=== PATIENT | female | born 1940 | race Caucasian/White ===

== ENCOUNTER 2019-07-09 07:44 | Inpatient (IN) | payer OTHER, BC ==
[2019-07-09] MEDS: TRANEXAMIC ACID 1GM/100ML(PMX) 100 ML AT CLOSURE X1 IVPB (06:00)
[2019-07-09] MEDS: CEFAZOLIN 2 GM/50 ML (PMX) 50 ML (FOR WT < 120 KG) IVPB (06:00)
[2019-07-09] MEDS: LACTATED RINGER'S 1,000 ML IV ×5 (09:00→22:00)
[2019-07-09] MEDS: DEXAMETHASONE 4 MG/ML 1 ML INJ IV (09:02)
[2019-07-09] MEDS: ACETAMINOPHEN 1000MG/100ML IV 100 ML IVPB (09:03)
[2019-07-09] MEDS ORDERED: METOCLOPRAMIDE 10 MG INJ (10:11)
[2019-07-09] MEDS ORDERED: morphine SULFATE/PF (10 MG/10 ML) INJ (10:11)
[2019-07-09] MEDS ORDERED: ONDANSETRON 4 MG INJ ×2 (10:11→16:13)
[2019-07-09] MEDS ORDERED: PROPOFOL 20 ML (10:11)
[2019-07-09] MEDS: TRANEXAMIC ACID 1GM/100ML(PMX) 100 ML AT INCISION X1 IVPB (10:31)
[2019-07-09] MEDS ORDERED: DEXAMETHASONE 4 MG/ML 5 ML INJ (10:48)
[2019-07-09] MEDS ORDERED: CEFAZOLIN 1 GM INJ (10:48)
[2019-07-09] MEDS ORDERED: ROCURONIUM 50 MG INJ (10:48)
[2019-07-09] MEDS: POLYMYXIN B 500000 UNIT INJ (11:33)
[2019-07-09] MEDS: BUPIVACAINE 0.25% (MPF) 30 ML INJ ×2 (11:33)
[2019-07-09] MEDS: BACITRACIN 50000 UNITS INJ IRR (11:33)
[2019-07-09] MEDS ORDERED: EPHEDrine 25 MG/5 ML SYG (11:35)
[2019-07-09] MEDS ORDERED: PHENYLephrine (100 MCG/ML) 10ML SYG (11:35)
[2019-07-09] MEDS ORDERED: ROPIVACAINE 0.2% 20 ML VIAL (12:49)
[2019-07-09] MEDS: TRANEXAMIC ACID 1GM/100ML(PMX) 100 ML (13:09)
[2019-07-09] MEDS ORDERED: KETOROLAC 15 MG INJ IV (13:30)
[2019-07-09] MEDS ORDERED: NALOXONE (0.4 MG/ML) INJ IV (13:30)
[2019-07-09] MEDS ORDERED: NACL 0.9% 3 ML SYG IV (13:30)
[2019-07-09] MEDS: ONDANSETRON 4 MG INJ IV ×2 (16:14→17:34)
[2019-07-09] MEDS ORDERED: GLUCAGON 1 MG INJ IM (17:00)
[2019-07-09] MEDS ORDERED: GLUCOSE GEL 15 GRAM TUBE BUCCAL (17:00)
[2019-07-09] MEDS ORDERED: GLUCOSE GEL 15 GRAM TUBE PO ×2 (17:00)
[2019-07-09] MEDS ORDERED: DEXTROSE 50% 50 ML SYRINGE IV ×2 (17:00)
[2019-07-09] MEDS: ACCU-CHEK XX ×2 (17:25→21:00)
[2019-07-09] MEDS: INSULIN ASPART [NOVOLOG] 3 ML PEN SC ×2 (19:41→22:23)
[2019-07-09] MEDS: CEFAZOLIN 2 GM/50 ML (PMX) 50 ML IVPB (19:41)
[2019-07-09] MEDS: GABAPENTIN 100 MG CAP PO (21:06)
[2019-07-10] MEDS: CEFAZOLIN 2 GM/50 ML (PMX) 50 ML IVPB ×3 (03:14→12:41)
[2019-07-10 05:19] LABS: ADD MAN DIFF? NO
[2019-07-10 05:23] LABS: WHITE BLOOD COUNT 8.8 10^3/ul (4.8-10.8)
[2019-07-10 05:23] LABS: HEMOGLOBIN 9.4 g/dl (12.0-16.0); LYMPHOCYTES # 0.8 10^3/ul (0.8-2.9); MEAN CORPUSCULAR HGB CONC 31.3 g/dl (32.0-37.0); MEAN CORPUSCULAR VOLUME 95.8 fl (82.0-101.0); MEAN PLATELET VOLUME 9.3 fl (7.4-10.4); MONOCYTE # 0.4 10^3/ul (0.3-0.9); MONOCYTES % 4.9 % (0.0-11.0); NEUTROPHIL # 7.5 10^3/ul (1.6-7.5); NEUTROPHILS % 85.8 % (39.0-77.0); PLATELET COUNT 229 10^3/UL (140-415); RED BLOOD COUNT 3.13 10^6/ul (4.20-5.40); RED CELL DISTRIBUTION WIDTH 14.1 % (11.5-14.5)
[2019-07-10 05:50] LABS: ANION GAP 8 (5-13); BLOOD UREA NITROGEN 14 mg/dl (7-20); CALCIUM 8.6 mg/dl (8.4-10.2); CARBON DIOXIDE 26 mmol/L (21-31); CHLORIDE 104 mmol/L (97-110); CREATININE 0.63 mg/dl (0.44-1.00); GLUCOSE 197 mg/dl (70-220); POTASSIUM 4.8 mmol/L (3.5-5.1); SODIUM 138 mmol/L (135-144)
[2019-07-10] MEDS: LACTATED RINGER'S 1,000 ML IV ×2 (06:00→14:19)
[2019-07-10] MEDS ORDERED: GLIMEPIRIDE 2 MG TAB PO (08:00)
[2019-07-10] MEDS: ACCU-CHEK XX ×4 (08:22→21:00)
[2019-07-10] MEDS: GABAPENTIN 100 MG CAP PO ×3 (08:24→20:34)
[2019-07-10] MEDS: DOCUSATE SODIUM 100 MG CAP PO ×2 (08:24→20:34)
[2019-07-10] MEDS: LISINOPRIL 20 MG TAB PO (08:24)
[2019-07-10] MEDS: metFORMIN 500 MG TAB PO (08:24)
[2019-07-10] MEDS: INSULIN ASPART [NOVOLOG] 3 ML PEN SC ×4 (08:26→20:36)
[2019-07-10] MEDS: [UNRECOGNIZED DRUG - REMARK] XX ×2 (09:00→17:00)
[2019-07-10] MEDS ORDERED: ASPIRIN (EC) 81 MG TAB PO (09:00)
[2019-07-10] MEDS: oxyCODONE 5 MG TAB PO ×3 (10:05→18:03)
[2019-07-10] MEDS: ASPIRIN 81 MG TAB PO (18:02)
[2019-07-11] MEDS: [UNRECOGNIZED DRUG - REMARK] XX ×2 (01:00→09:00)
[2019-07-11] MEDS: oxyCODONE 5 MG TAB PO ×3 (01:25→08:12)
[2019-07-11 04:59] LABS: ADD MAN DIFF? NO
[2019-07-11 05:07] LABS: BASOPHILS % 0.3 % (0.0-2.0); EOSINOPHILS # 0.1 10^3/ul (0.0-0.5); EOSINOPHILS % 0.5 % (0.0-7.0); HEMATOCRIT 30.8 % (37.0-47.0); HEMOGLOBIN 9.7 g/dl (12.0-16.0); LYMPHOCYTES # 1.4 10^3/ul (0.8-2.9); LYMPHOCYTES % 15.3 % (15.0-51.0); MEAN CORPUSCULAR HEMOGLOBIN 30.1 pg (29.0-33.0); MEAN CORPUSCULAR HGB CONC 31.5 g/dl (32.0-37.0); MEAN CORPUSCULAR VOLUME 95.7 fl (82.0-101.0); MEAN PLATELET VOLUME 9.2 fl (7.4-10.4); MONOCYTE # 0.6 10^3/ul (0.3-0.9); MONOCYTES % 6.5 % (0.0-11.0); NEUTROPHIL # 7.1 10^3/ul (1.6-7.5); NEUTROPHILS % 76.8 % (39.0-77.0); PLATELET COUNT 219 10^3/UL (140-415); RED BLOOD COUNT 3.22 10^6/ul (4.20-5.40); RED CELL DISTRIBUTION WIDTH 13.9 % (11.5-14.5)
[2019-07-11 05:07] LABS: WHITE BLOOD COUNT 9.3 10^3/ul (4.8-10.8)
[2019-07-11 05:39] LABS: ANION GAP 6 (5-13); BLOOD UREA NITROGEN 15 mg/dl (7-20); CALCIUM 8.6 mg/dl (8.4-10.2); CARBON DIOXIDE 30 mmol/L (21-31); CHLORIDE 97 mmol/L (97-110); CREATININE 0.76 mg/dl (0.44-1.00); GLUCOSE 188 mg/dl (70-220); POTASSIUM 4.7 mmol/L (3.5-5.1); SODIUM 133 mmol/L (135-144)
[2019-07-11] MEDS: MAGNESIUM HYDROXIDE 30ML CUP PO (05:44)
[2019-07-11] MEDS: PANTOPRAZOLE (EC) 40 MG TAB PO (05:44)
[2019-07-11] MEDS: ACCU-CHEK XX ×2 (07:20→11:10)
[2019-07-11] MEDS: metFORMIN 500 MG TAB PO (08:11)
[2019-07-11] MEDS: DOCUSATE SODIUM 100 MG CAP PO (08:11)
[2019-07-11] MEDS: GABAPENTIN 100 MG CAP PO ×2 (08:11→13:25)
[2019-07-11] MEDS: ASPIRIN 81 MG TAB PO (08:11)
[2019-07-11] MEDS: INSULIN ASPART [NOVOLOG] 3 ML PEN SC ×2 (08:27→12:41)
[2019-07-11] MEDS: ONDANSETRON 4 MG INJ IV (08:39)
[2019-07-11] MEDS: LISINOPRIL 20 MG TAB PO (09:46)
== END 2019-07-11 14:21 | disposition home health service (06) | DRG 468 ==
LOC: REC 07:44 → MS1 16:55
PROVIDERS: Orthopaedic Surgery
PROC: 0SPD0JZ Removal of Synthetic Substitute from Left Knee Joint, Open Approach (ICD-10-PCS; principal; 2019-07-09 10:30)
PROC: 0SRD069 Replacement of Left Knee Joint with Oxidized Zirconium on Polyethylene Synthetic Substitute, Cemented, Open Approach (ICD-10-PCS; 2019-07-09 10:30)
DX: T84.033A Mechanical loosening of internal left knee prosthetic joint, initial encounter (principal); Y84.8 Other medical procedures as the cause of abnormal reaction of the patient, or of later complication, without mention of misadventure at the time of the procedure; Z96.652 Presence of left artificial knee joint; I10 Essential (primary) hypertension; E11.9 Type 2 diabetes mellitus without complications; K29.70 Gastritis, unspecified, without bleeding; Y92.9 Unspecified place or not applicable; Z79.4 Long term (current) use of insulin
CPT/HCPCS: 73560; 80048; 82962; 85025; 86850; 86900; 86901; 87070; 87075; 87081; 88300; 97116; 97162; 97530